=== PATIENT | male | born 1975 | race Caucasian/White ===

== ENCOUNTER 2024-07-21 14:55 | Emergency (ER) | payer OTHER, SELFPAY ==
[2024-07-21 14:59] VITALS: BP 145/82; PULSE 86; TEMP 37.1; O2SAT 95; BMI 31.6
[2024-07-21 15:39] LABS: Internal Control Within Normal Limits; Strep A Antigen Screen Negative
[2024-07-21] MEDS: DEXAMETHASONE SOD PHOS 10 MG/ML VIAL PO (16:08)
[2024-07-21 16:48] LABS: Influenza Virus A Antigen Negative; Influenza Virus B Antigen Negative; Internal Control Within Normal Limits; SARS-CoV-2 Ag NEGATIVE (NEGATIVE)
--- NOTE | 2024-07-21 17:25 | ED.GENADUL1 ---
HPI HPI - General Adult General Chief complaint: Upper Respiratory Infection Stated complaint: SORE THROAT Time Seen by Provider: 07/21/24 15:34 Source: patient Mode of arrival: walk-in Limitations: no limitations History of Present Illness HPI narrative: 38-year-old male presents here with a chief complaint of 1 day history of sore throat denies cough congestion or bodyaches. Denies known fever. Posterior pharynx is red there is no sign of peritonsillar abscess is tolerating secretions well and is afebrile Related Data Allergies Allergy/AdvReac Type Severity Reaction Status Date / Time No Known Drug Allergies Allergy Verified 07/21/24 14:59 Opioid HPI Opioid Management Most Recent Opioid Data: Last Pain Scale 4 07/21/24 15:06 Review of Systems ROS Narrative All Systems are negative except as noted/marked.All systems reviewed and otherwise negative PFSH PFSH Social History Little interest or pleasure in doing things: not at all Feeling down, depressed, or hopeless: not at all Exam Narrative Exam Narrative: Nurses note and vital signs reviewed and patient is not hypoxic. General: The patient appears well and in no apparent distress. Patient is resting comfortably on cart. Skin: Warm, dry, no pallor noted. There is no rash noted. Head: Normocephalic, atraumatic Eye: Normal conjunctiva, no drainage, EOMI. PERRL Ears, Nose, Mouth, and Throat: oral mucosa is moist. Nares patent. Mouth without vesicles. Ear canals patent. Tm's without Erythema Cardiovascular: Regular Rate and Rhythm Respiratory: Patient is in no distress, no accessory muscle use, lungs are clear to auscultation, no wheezing, rales or rhonchi Musculoskeletal: The patient has no evidence of calf tenderness, no pitting edema, symmetrical pulses noted bilaterally Neurological: A&O x4, normal speech Psychiatric: Cooperative Constitutional Vital Signs, click to edit/add: Last Vital Signs Temp 98.7 F 07/21/24 14:59 Pulse 86 07/21/24 14:59 Resp 15 07/21/24 14:59 BP 145/82 H 07/21/24 14:59 Pulse Ox 95 07/21/24 14:59 O2 Del Method Room Air 07/21/24 14:59 Course Vital Signs Vital signs: Vital Signs Temperature 98.7 F 07/21/24 14:59 Pulse Rate 86 07/21/24 14:59 Respiratory Rate 15 07/21/24 14:59 Blood Pressure 145/82 H 07/21/24 14:59 Pulse Oximetry 95 07/21/24 14:59 Oxygen Delivery Method Room Air 07/21/24 14:59 Temperature 98.7 F 07/21/24 14:59 Pulse Rate 86 07/21/24 14:59 Respiratory Rate 15 07/21/24 14:59 Blood Pressure 145/82 H 07/21/24 14:59 Pulse Oximetry 95 07/21/24 14:59 Oxygen Delivery Method Room Air 07/21/24 14:59 Medical Decision Making MDM Narrative Medical decision making narrative: Complaint of a sore throat. Patient states he took today off of work due to his sore throat. Patient shows no signs of distress. Posterior pharynx is patent no peritonsillar abscess appreciated tolerating secretions well he is afebrile. Strep flu and COVID were all negative today. Patient was treated with 1 dose of Decadron to help with inflammation and swelling. Patient states he does feel better at this time. He will be discharged to home. Patient denied need for a work note at this time. Otherwise healthy. Differential Diagnosis Differential Diagnosis: Strep, COVID, tonsillitis, URI Medical Records Medical records reviewed: Yes I reviewed the patient's medical records Lab Data Lab results reviewed: Yes I reviewed the patient's lab results Labs: Lab Results 07/21/24 07/21/24 Range/Units 15:05 16:10 Influenza Type A Ag Negative Influenza Type B Ag Negative SARS-CoV-2 Ag (CV2AG) Negative (NEGATIVE) Streptococcus Screen Negative Discharge Plan Discharge Chief Complaint: Upper Respiratory Infection Clinical Impression: Upper respiratory infection, Pharyngitis Patient Disposition: Home, Self-Care Time of Disposition Decision: 17:24 Condition: Good Print Language: Armenian Instructions: Pharyngitis (ED), Upper Respiratory Infection (ED) Referrals: ELOISE ALLISON NP [Primary Care Provider] - 1 week
[2024-07-21 17:40] VITALS: BP 140/70; PULSE 80; O2SAT 96
== END 2024-07-21 17:45 | disposition home or self-care (01) ==
PROVIDERS: Physician Assistant; Emergency Provider Emergency Medicine Emergency Medical Services
DX: J06.9 Acute upper respiratory infection, unspecified (principal); J02.9 Acute pharyngitis, unspecified; Z20.822 Contact with and (suspected) exposure to COVID-19
CPT/HCPCS: 87070; 87804; 87811; 87880; 99283; J1100